=== PATIENT | male | born 1970 | race Caucasian/White ===

== ENCOUNTER 2019-09-21 14:45 | Outpatient (CLI) | payer OTHER, MEDICAID, SELFPAY ==
--- NOTE | ~2019-09-21 | XR_ITS ---
XR thoracic spine 3V 09/21/2019 15:11 Indication: Chest pain Procedure: 3 views of the thoracic spine Comparison: No prior studies for comparison. Findings: Vertebral body heights are maintained. No paraspinal soft tissue abnormality. Pedicles inta ct. Surrounding osseous structures within normal limits. Impression: 1: No significant abnormality of the thoracic spine. Reviewed, dictated and finalized at location A. Impression: 1: No significant abnormality of the thoracic spine.
== END 2019-09-21 14:46 | disposition home or self-care (01) ==
PROVIDERS: PCP Family Medicine; Visit Provider Physician Assistant
DX: M54.6 Pain in thoracic spine (principal); R07.9 Chest pain, unspecified
CPT/HCPCS: 72072

== ENCOUNTER → 2019-11-04 13:54 | Outpatient (CLI) | payer SELFPAY ==
--- NOTE | ~2019-11-04 | US_ITS ---
EXAMINATION: US soft tissue head and neck EXAM DATE: 11/04/2019 14:24 INDICATION: Left neck mass. TECHNIQUE: Multiple grayscale and Doppler images of the left neck symptomatic region were obtained (nica mae a technologist who performed the scan) and subsequently reviewed. There is no prior study for roni blair. FINDINGS: Scanning in the area of clinical concern demonstrates lymphadenopathy, with largest lymph node measur ing 3.6 x 2.3 x 3.1 cm, next largest measuring 1.8 x 1.1 x 1.8 cm. Only small fatty hilum is present. Appearance is suspicious for lymphoma or other malignancy. Recommend CT neck with contrast, ENT cons ult. IMPRESSION: 1. Left neck lymphadenopathy; recommend CT scan and ENT consult. I discussed this finding, recommendation with Jazmin in the office of Eric Rao DO at 11/03 14:40 CDT . Reviewed, dictated and finalized at location B. IMPRESSION: 1. Left neck lymphadenopathy; recommend CT scan and ENT consult. I discussed this finding, recommendation with Jazmin in the office of Eric acosta DO at 11/04/2019 14:40 CDT .
== END ==
PROVIDERS: PCP Student in an Organized Health Care Education/Training Program; Visit Provider Student in an Organized Health Care Education/Training Program
DX: R22.1 Localized swelling, mass and lump, neck (principal); R59.0 Localized enlarged lymph nodes
CPT/HCPCS: 76536

== ENCOUNTER 2019-12-25 20:21 | Emergency (ER) | payer BC, SELFPAY ==
--- NOTE | ~2019-12-25 | CT_ITS ---
EXAMINATION: CT abdomen pelvis w con DATE: 12/25/2019 21:19 INDICATION: Right flank pain TECHNIQUE: Computed tomography (CT) of the abdomen and pelvis was performed with 100 cc Omnipaque 350 intravenous contrast. The dose-length product was 244.94 mGy-cm. Automated exposure control and iter ative reconstruction technique were employed. COMPARISON: CT dated 03/29/2016. FINDINGS: Lung bases are unremarkable. No significant pleural or pericardial effusion. Heart size is normal. There is a large soft tissue mass centered in the upper abdomen retroperitoneum encasing the left adr enal gland extending across the midline posterior to the IVC and abutting the medial aspect of the ri ght is fashion on the right. This surrounds the aorta and renal vessels. Fatty infiltration of the liver. The spleen, pancreas, right adrenal gland and right kidney are unrem arkable. The previously described mass extends into the left renal hilum. Gallbladder is present. Non obstructive bowel gas pattern. Enlarged prostate gland. Trace fluid extending along the paracolic gut ters into the pelvis. Mild lumbar spondylosis. IMPRESSION: 1. Large 13.2 x 11.8 x 9 cm left retroperitoneal mass centered in the upper abdomen encasing the left adrenal gland, aorta, IVC and renal vessels, most likely lymphoma. Metastatic disease and spindle ce ll tumors are not excluded. Reviewed, dictated and finalized at location A. IMPRESSION: 1. Large 13.2 x 11.8 x 9 cm left retroperitoneal mass centered in the upper abd omen encasing the left adrenal gland, aorta, IVC and renal vessels, most likely lymphoma. Metastatic disease and spindle cell tumors are not excluded.
[2019-12-25 20:25] VITALS: BP 124/85; PULSE 89; RESP 18; TEMP 36.2; O2SAT 100
--- NOTE | 2019-12-25 20:33 | ED.NAVMDI ---
HPI - Nausea/Vomiting/Diarrhea General Chief complaint: Nausea/Vomiting/Diarrhea Stated complaint: abdominal pain, constipation, vomiting. Time Seen by Provider: 12/25/19 20:30 History of Present Illness HPI Narrative: 49 yo male w/ h/o testicular cancer on chemo therapy presents to the ED for nausea, vomiting, and abdominal pain. He has had nausea and vomiting for the past 5 days. Worse today and associated with right sided abdominal pain described as pressure. He also reports only being able to pass only small soft bowel movmeents, although he attributed this to decreased intake. Related Data Home Medications Medication Instructions Recorded Confirmed aspirin 325 mg tablet 325 mg PO DAILY 05/12/19 09/08/19 multivitamin 1 tablet PO DAILY 05/12/19 09/08/19 Allergies Allergy/AdvReac Type Severity Reaction Status Date / Time No Known Allergies Allergy Verified 09/08/19 13:30 Review of Systems Review of Systems: All systems reviewed & are unremarkable except as noted in HPI and below Constitutional: Constitutional: Denies fever(s) and Reports weakness ENT: Reports dizziness Cardiovascular: Cardiovascular: Denies chest pain Respiratory: Respiratory: Denies dyspnea Gastrointestinal: Gastrointestinal: Reports abdominal pain, Reports nausea and Reports vomiting Genitourinary: Genitourinary: Reports oliguria Neurologic: Reports weakness PMFSH Past Medical History Medical History H/O testicular cancer Family History Family History Mother Family history of hypercholesterolemia Family history of malignant neoplasm of urinary bladder Father Malignant neoplasm of prostate Family history of malignant neoplasm of testis Social History Social History Smoking status: Never smoker Alcohol intake: current Substance use: never Substance use type: does not use Gender identity (if verbalized by the patient): Male Exam Const: General: no acute distress, alert and ill appearing Orientation/consciousness: patient oriented x3 HENMT: Head: normal to inspection Resp: Effort & Inspection: normal respiratory effort Auscultation: clear to auscultation bilaterally, no rales, no rhonchi and no wheezes Cardio: Jugular venous distension: no JVD Rate: regular rate Rhythm: regular rhythm Heart sounds: no murmurs GI: Inspection: non-distended GI Palp: Yes Soft to palpation, Yes Tenderness to palpation present (GI) (Right lateral), Yes Guarding due to palpation present (GI) and No Rebound tenderness present Skin: General skin exam: normal color Neuro: General: patient oriented x3, moves all extremities and no focal motor deficits Speech: normal speech Extrem: General: normal to inspection and no edema Psych: Appearance: well kempt Affect: normal affect Course Vital Signs Vital signs: Vital Signs Temperature 36.2 C L 12/25/19 20:25 Pulse Rate 89 12/25/19 20:25 Respiratory Rate 18 12/25/19 20:25 Blood Pressure 124/85 12/25/19 20:25 Pulse Oximetry 100 12/25/19 20:25 Temperature 36.8 C 12/25/19 23:12 Pulse Rate 80 12/25/19 23:12 Respiratory Rate 16 12/25/19 23:12 Blood Pressure 116/70 12/25/19 23:12 Pulse Oximetry 100 12/25/19 23:12 MDM - Nausea/Vomiting/Diarrhea MDM Narrative Medical decision making narrative: Feeling better and tolerating PO after treatment. Feels ready to be discharged. Medical Records Attestation: I reviewed the patient's medical records. Lab Data Attestation: I reviewed the patient's lab results. Result diagrams: 12/25/19 20:35 12/25/19 20:35 Labs: Lab Results 12/25/19 12/25/19 12/25/19 Range/Units 20:35 20:35 21:45 WBC 7.4 (4.5-10.0) K/mm3 RBC 5.50 (4.6-6.20) M/mm3 Hgb 16.7 (14.0-18.0) g/dL Hct 47.1 (42.0-52.0)
[2019-12-25 20:41] LABS: Basophils Percent Auto 0.3 % (0.2-1.2); Eosinophils Percent Auto 0.5 % (0-4.4); Hematocrit 47.1 % (42.0-52.0); Hemoglobin 16.7 g/dL (14.0-18.0); Immature Granulocyte Absolute 0.03 K/mm3 (0.00-0.031); Immature Granulocyte Percent A 0.4 % (0-0.5); Lymphocytes Absolute Auto 0.79 K/mm3 (0.9-3.2); Lymphocytes Percent Auto 10.6 % (18.3-44.2); Mean Corpuscular HGB Conc 35.5 g/dl (32-36); Mean Corpuscular Hemoglobin 30.4 pg (26-34); Mean Corpuscular Volume 85.6 fl (80-100); Mean Platelet Volume 9.5 fl (7.4-10.4); Monocytes Absolute Auto 0.1 K/mm3 (0.1-0.6); Monocytes Percent Auto 0.8 % (2.6-8.5); Neutrophils Absolute Auto 6.5 K/mm3 (1.3-6.7); Neutrophils Percent Auto 87.4 % (45.5-73.1); Platelet Count Result 404 k/mm3 (150-375); Red Cell Distribution Width 11.5 % (11.5-14.5); White Blood Count 7.4 K/mm3 (4.5-10.0)
[2019-12-25 20:50] VITALS: BP 110/93; BP 117/85; BP 117/90; PULSE 104; PULSE 87
[2019-12-25 20:53] LABS: Alanine Aminotransferase 35 U/L (4-50); Albumin Level 4.2 g/dL (3.5-5.1); Alkaline Phosphatase 98 U/L (38-126); Anion Gap 8 mmol/L (8-16); Aspartate Amino Transferase 25 U/L (17-59); Bilirubin,Total 1.6 mg/dL (0.2-1.3); Blood Urea Nitrogen 28 mg/dL (9-20); Calcium 9.2 mg/dL (8.4-10.2); Carbon Dioxide 28 mmol/L (22-30); Chloride 97 mmol/L (98-107); Estimated CRCL calculation 56 ml/min; Estimated Glomerular Filt Rate 59; Glucose 99 mg/dL (75-110); Lipase 605 U/L (23-300); Potassium 4.2 mmol/L (3.4-5.0); Sodium 133 mmol/L (137-145)
[2019-12-25] MEDS: SODIUM CHLORIDE 0.9% IV 1,000 ML 999 ML IV CONT (21:49)
[2019-12-25] MEDS: ONDANSETRON INJ 4 MG/2 ML VIAL IV PUSH (21:49)
[2019-12-25 21:57] LABS: Add Urine Microscopic? YES; Appearance Urine Clear (Clear); Bilirubin Urine Negative (Negative); Blood Urine 2+ (Negative); Color Urine Yellow (Yellow); Glucose Urine UA Negative (Negative); Ketones Urine Trace mg/dL (Negative); Leukocyte Esterase Ur Negative LEU/UL (Negative); Nitrate Urine Negative (Negative); Protein Urine Negative (Negative); RBC Urine 0-2 /hpf (0-2); Squamous Epithelial Cell Urine Rare /hpf (Few); Urobilinogen Urine Negative mg/dL (<2.0); WBC Urine 0-3 /hpf
[2019-12-25 21:59] LABS: Specific Grav Ur > 1.060 (1.001-1.035)
[2019-12-25 23:12] VITALS: BP 116/70; PULSE 80; RESP 16; TEMP 36.8; O2SAT 100
== END 2019-12-25 23:13 | disposition home or self-care (01) ==
PROVIDERS: Emergency Provider Emergency Medicine; PCP Student in an Organized Health Care Education/Training Program
DX: R11.2 Nausea with vomiting, unspecified (principal); R10.9 Unspecified abdominal pain; C62.90 Malignant neoplasm of unspecified testis, unspecified whether descended or undescended; Z79.82 Long term (current) use of aspirin; Z79.899 Other long term (current) drug therapy; R19.02 Left upper quadrant abdominal swelling, mass and lump
CPT/HCPCS: 36415; 74177; 80053; 81001; 83690; 85025; 96361; 96374; 99284; J2405; J7030; Q9967

== ENCOUNTER 2020-03-20 08:56 | Outpatient (CLI) | payer BC, SELFPAY ==
--- NOTE | ~2020-03-20 | CT_ITS ---
EXAMINATION: CT chest abdomen pelvis w con EXAM DATE: 03/20/2020 09:38 INDICATION: Metastatic testicular cancer. TECHNIQUE: Spiral CT of the chest, abdomen and pelvis was performed without contrast. Axial, adam l and sagittal images were reviewed. Coronal maximum intensity pixel images of chest reviewed. The dose-length product (DLP) for this examination was 519.58 mGy-cm. The exposure was tailored accordin g to patient size (auto mA exposure control), and iterative reconstruction (ASIR) was used as additio nal dose reduction technique. Comparison is made to prior examination from 12/25/2019. FINDINGS: CHEST: The lungs are clear. There are no pleural or pericardial effusions. Tracheobronchial tree is patent. There is no mediastinal, hilar or axillary lymphadenopathy. There is no pneumothorax. Heart normal in size. There is mild to moderate coronary arterial calcification, arterial sclero sis. ABDOMEN PELVIS: There is ill-defined soft tissue density at the root of the mesentery, and surroundin g the left renal artery and veins, with significant interval decrease in bulk compared to previous ex am (today region medial to the left kidney measures 3.3 x 3.7 cm versus about 8.5 x 7.8 cm in December . This is consistent with response to chemotherapy treatment. There is evidence of left-sided orchiec bonita. The liver, spleen, adrenal glands and pancreas are unremarkable. Gallbladder is unremarkable. No bi liary obstruction. Portal and splenic veins are patent. Kidneys enhance symmetrically. There is no hydronephrosis. There is mild prostatomegaly. The bladder is undistended at time of imaging. The appendix is normal. The stomach and small bowel are unremarkable. There is expected amount of c olonic stool. No free intraperitoneal gas. There are no osteoblastic or osteolytic lesions identi fied. IMPRESSION: Significant interval decrease in size of retroperitoneal, left renal perihilar metastatic disease. Reviewed, dictated and finalized at location A. RUCTIONAL SUPPORT TECHNICIAN IMPRESSION: Significant interval decrease in size of retroperitoneal, left sophia l perihilar metastatic disease.
== END 2020-03-20 08:57 | disposition home or self-care (01) ==
PROVIDERS: PCP Student in an Organized Health Care Education/Training Program; Visit Provider Internal Medicine Medical Oncology
DX: C62.90 Malignant neoplasm of unspecified testis, unspecified whether descended or undescended (principal)
CPT/HCPCS: 71260; 74177; Q9967

== ENCOUNTER 2023-10-22 07:04 | Outpatient (CLI) | payer BC, SELFPAY ==
--- NOTE | ~2023-10-22 | MR_ITS ---
MRI of the cervical spine Clinical History: Radiculopathy Technique: Axial T2-weighted and gradient images, and sagittal T1-weighted, T2-weighted, and STIR bety ges were acquired. Findings: There is no fracture of the cervical spine. There is minimal grade 1 retrolisthesis of C5 o paulette C6. No suspicious bone marrow signal abnormality seen. At C2-C3, C3-C4, C4-C5, there is no disc bulge or herniation. No spinal canal stenosis, cord compress ion, or neural foraminal narrowing at these levels. At C5-C6, there is moderate degenerative disc narrowing with disc osteophyte complex, most prominent at the right foraminal region. No mahnaz spinal canal stenosis or cord compression. There is right ivan ral foraminal narrowing, and possible minimal left neural foraminal narrowing. At C6-C7, there is probable right foraminal disc bulge/protrusion. No spinal canal stenosis or cord c ompression. Left neural foramen preserved. There is right neural foraminal narrowing. Impression: Degenerative spondylosis at C5-C6 and C6-C7, as detailed above, resulting in right neural foraminal n arrowing at these levels. Minimal grade 1 retrolisthesis of C5 over C6. Reviewed, dictated and finalized at location . Impression: Degenerative spondylosis at C5-C6 and C6-C7, as detailed above, resulting in ri ght neural foraminal narrowing at these levels. Minimal grade 1 retrolisthesis of C5 over C6.
== END 2023-10-22 07:05 ==
PROVIDERS: PCP Student in an Organized Health Care Education/Training Program; Visit Provider Student in an Organized Health Care Education/Training Program
DX: M54.12 Radiculopathy, cervical region (principal); M43.02 Spondylolysis, cervical region
CPT/HCPCS: 72141

== ENCOUNTER 2024-02-22 22:46 | Emergency (ER) | payer BC, SELFPAY ==
--- NOTE | ~2024-02-22 | CT_ITS ---
CT ANGIOGRAM NECK AND HEAD History: Dizziness. Technique: Axial noncontrast imaging of brain was performed. Serial spiral axial images through the h ead and neck were then obtained during arterial phase IV injection of 100 cc of Omnipaque 350. 3-D po stprocessing and MIP images were then reconstructed on the remote workstation. Dose reduction techniq ue was used on this scan by utilizing automated exposure control and iterative reconstruction techniq ue. The dose-length product (DLP) was 1853.20 mGy-cm. CTA neck findings: Bilateral vertebral arteries are patent. The common carotid, internal carotid, and external carotid arteries are patent. No stenosis or large vessel occlusion. No aneurysm. The proximal right internal carotid artery demonstrates 0% stenosis re lative to the normal distal artery lumen diameter. The proximal left internal carotid artery demonstr ates 0% stenosis relative to the normal distal artery lumen diameter. CTA head findings: Distal vertebral arteries, basilar artery, and posterior cerebral arteries are pat ent. Distal internal carotid arteries, middle cerebral arteries, and anterior cerebral arteries are p atent. No large vessel occlusion or stenosis. No aneurysm. Axial noncontrast images of the brain is unremarkable. No acute infarct, intracranial hemorrhage, or mass lesion seen. No mass effect or midline shift. Contreras-white differentiation intact. Ventricles and subarachnoid spaces are unremarkable. Paranasal sinuses and mastoid air cells are clear. Calvarium in tact. Impression: No significant abnormality seen. Reviewed, dictated and finalized at [facility]. ER Impression: No significant abnormality seen.
[2024-02-22 22:50] VITALS: BP 154/86; PULSE 75; RESP 15; TEMP 36.6; O2SAT 100
--- NOTE | 2024-02-22 22:54 | ECG_ITS ---
Test Date: 2024-02-22 23:00:34 Measurements Intervals [place] Rate: 78 P: 61 CT: 137 QRS: 39 QRSD: 97 T: 60 QT: 372 QTc: 426 Interpretive Statements SINUS RHYTHM POSSIBLE LEFT ATRIAL ENLARGEMENT [-0.1mV P WAVE IN V1/V2] No previous ECG available for comparison Electronically Signed On 02-23-2024 12:50:01 BILINGUAL EXECUTIVE ASSISTANT by Jj Sullivan M.D.
[2024-02-22 23:16] LABS: Basophils Absolute Auto 0.1 K/mm3 (0.0-0.1); Basophils Percent Auto 0.6 % (0.2-1.2); Eosinophils Absolute Auto 0.2 K/mm3 (0-0.3); Eosinophils Percent Auto 2.1 % (0-4.4); Hematocrit 45.5 % (42.0-52.0); Hemoglobin 16.2 g/dL (14.0-18.0); Immature Granulocyte Absolute 0.03 K/mm3 (0.00-0.031); Immature Granulocyte Percent A 0.4 % (0-0.5); Lymphocytes Absolute Auto 1.17 K/mm3 (0.9-3.2); Lymphocytes Percent Auto 13.8 % (18.3-44.2); Mean Corpuscular HGB Conc 35.6 g/dl (32-36); Mean Corpuscular Hemoglobin 31.3 pg (26-34); Mean Corpuscular Volume 87.8 fl (80-100); Monocytes Absolute Auto 0.7 K/mm3 (0.1-0.6); Monocytes Percent Auto 8.7 % (2.6-8.5); Neutrophils Absolute Auto 6.3 K/mm3 (1.3-6.7); Neutrophils Percent Auto 74.4 % (45.5-73.1); Platelet Count Result 248 k/mm3 (150-375); Red Blood Count 5.18 M/mm3 (4.6-6.20); Red Cell Distribution Width 12.9 % (11.5-14.5); White Blood Count 8.5 K/mm3 (4.5-10.0)
[2024-02-22 23:27] LABS: Alanine Aminotransferase 77 U/L (6-50); Albumin Level 4.7 g/dL (3.5-5.1); Alkaline Phosphatase 63 U/L (38-126); Anion Gap 11 mmol/L (4-12); Aspartate Amino Transferase 42 U/L (17-59); Bilirubin,Total 0.3 mg/dL (0.2-1.3); Blood Urea Nitrogen 15 mg/dL (9-20); Calcium 9.4 mg/dL (8.4-10.2); Carbon Dioxide 25 mmol/L (22-30); Chloride 105 mmol/L (98-107); Estimated CRCL calculation 63 ml/min; Estimated Glomerular Filt Rate > 60; Glucose 124 mg/dL (65-110); Potassium 3.9 mmol/L (3.4-5.0); Sodium 141 mmol/L (137-145)
[2024-02-23] VITALS (9 sets, daily range): BP systolic 129–138; BP diastolic 90–100; PULSE 77–92; RESP 12–25; O2SAT 96–100
[2024-02-23] MEDS: ONDANSETRON INJ 4 MG/2 ML VIAL IV PUSH (01:05)
[2024-02-23] MEDS: SODIUM CHLORIDE 0.9% IV 2,000 ML 999 ML IV CONT (01:05)
--- NOTE | 2024-02-23 02:56 | ED_ITS ---
HPI - General Adult General Chief complaint: Nausea/Vomiting/Diarrhea Stated complaint: n/v x 3 weeks Time Seen by Provider: 02/23/24 00:40 History of Present Illness HPI narrative: This is a 53-year-old male presenting with nausea vomiting 3 weeks. Patient has been feeling sensations of vertigo. These are worse at night. They are triggered by head movements and cause significant anxiety, nausea and vomiting. He does not have any associated double vision, slurred speech, trouble swallowing or loss of coordination. Symptoms completely and result resolve in between episodes. Patient has had some difficulty hearing during this time. Patient also notes that he is under a significant amount of stress as his father's cancer Related Data Home Medications Medication Instructions Recorded Confirmed aspirin 325 mg tablet 325 mg PO DAILY 05/12/19 09/08/19 multivitamin 1 tablet PO DAILY 05/12/19 09/08/19 Allergies Allergy/AdvReac Type Severity Reaction Status Date / Time No Known Allergies Allergy Verified 02/23/24 00:17 [facility] Past Medical History Medical History H/O testicular cancer Family History Family History Mother Family history of hypercholesterolemia Family history of malignant neoplasm of urinary bladder Father Malignant neoplasm of prostate Family history of malignant neoplasm of testis Social History Social History Smoking status: Never smoker Alcohol intake: current Alcohol use details: social drinker Substance use: never Substance use type: does not use Living arrangements: alone Occupation/Education: occupation Gender identity (if verbalized by the patient): Male Exam Narrative: APPEARANCE: No apparent distress. Head: atraumatic. TMs normal bilaterally EYES: EOMI, no nystagmus NOSE: Atraumatic NECK: Trachea midline RESPIRATORY: No increased rate of breathing, clear to auscultation CARDIOVASCULAR: RRR, no peripheral edema ABDOMINAL: Non-distended MUSCULOSKELETAl: No obvious deformities NEURO: Alert. Cranial nerves 2-12 grossly intact. Sensation light touch, motor function cerebellar function intact for 4 extremities. Gait exam was normal. SKIN:: Warm, dry. Normal color PSYCHIATRIC: Normal affect Course Vital Signs Vital signs: Vital Signs Temperature 97.8 F 02/22/24 22:50 Pulse Rate 75 02/22/24 22:50 Respiratory Rate 15 02/22/24 22:50 Blood Pressure 154/86 H 02/22/24 22:50 Pulse Oximetry 100 02/22/24 22:50 Oxygen Delivery Room Air 02/22/24 22:50 Temperature 97.8 F 02/22/24 22:50 Pulse Rate 87 02/23/24 00:15 Respiratory Rate 14 02/23/24 00:15 Blood Pressure 138/100 H 02/23/24 00:15 Pulse Oximetry 99 02/23/24 00:15 Oxygen Delivery Room Air 02/22/24 22:50 Medical Decision Making MDM Narrative Medical decision making narrative: -Course: 53-year-old male presenting with intermittent triggerable vertigo, na usea/vomiting. Patient does not have any concerning signs of a central cause of vertigo. CTA unremarkable. Laboratory studies normal. Patient be treated with meclizine. He will be given prescription for Zofran to help with nausea. Patient instructed follow-up with his primary care physician for further management. -DDX includes but is not limited to: peripheral vertigo, central vertigo BPPV, acute vestibular neuritis -Independent interpretation of studies: labs imaging reviewed Independent EKG interpretation: Rhythm [sinus], Rate [78], Callahan -[normal], MD -[normal], QRS [narrow], QTC [n ormal], T waves -[negative for concerning inversions], ST Segments - [Negative for concerning elevations] Final interpretations: [Normal Sinus Rhythm] -Shared decision making / Disposition:discharged. -RX Zofran Vital Signs Vital Signs: Vital Signs Temperature 97.8 F 02/22/24 22:50 Pulse Rate 75 02/22/24 22:50 Respiratory Rate 15 02/22/24 22:50 Blood Pressure 154/86 H 02/22/24 22:50 Pulse Oximetry 100 02/22/24 22:50 Oxygen Delivery Room Air 02/22/24 22:50 Temperature 97.8 F 02/22/24 22:50 Pulse Rate 87 02/23/24 00:15 Respiratory Rate 14 02/23/24 00:15 Blood Pressure 138/100 H 02/23/24 00:15 Pulse Oximetry 99 02/23/24 00:15 Oxygen Delivery Room Air 02/22/24 22:50 Lab Data 02/22/24 23:04 02/22/24 23:04 Labs: Lab Results 02/22/24 02/23/24 Range/Units 23:04 02:20 WBC 8.5 (4.5-10.0) K/mm3 RBC 5.18 (4.6-6.20) M/mm3 Hgb 16.2 (14.0-18.0) g/dL Hct 45.5 (42.0-52.0) % MCV 87.8 (80-100) fl MCH 31.3 (26-34) pg MCHC 35.6 (32-36) g/dl RDW 12.9 (11.5-14.5) % Plt Count 248 (150-375) k/mm3 MPV 10.0 (7.4-10.4) fl Immature Gran % (Auto) 0.4 (0-0.5) % Neut % (Auto) 74.4 H (45.5-73.1) % Lymph % (Auto) 13.8 L (18.3-44.2) % [place]ike % (Auto) 8.7 H (2.6-8.5) % Eos % (Auto) 2.1 (0-4.4) % Baso % (Auto) 0.6 (0.2-1.2) % Lymph # (Auto) 1.17 (0.9-3.2) K/mm3 Pike # (Auto) 0.7 H (0.1-0.6) K/mm3 Eos # (Auto) 0.2 (0-0.3) K/mm3 Baso # (Auto) 0.1 (0.0-0.1) K/mm3 Abs Immat Gran (auto) 0.03 (0.00-0.031) K/mm3 Absolute Neuts (auto) 6.3 (1.3-6.7) K/mm3 Absolute Nucleated RBC 0.000 (0.0-0.012) K/mm3 Nucleated RBC % 0.0 (0.0-0.2) % Sodium 141 (137-145) mmol/L Potassium 3.9 (3.4-5.0) mmol/L Chloride 105 (98-107) mmol/L Carbon Dioxide 25 (22-30) mmol/L Anion Gap 11 (4-12) mmol/L BUN 15 D (9-20) mg/dL Creatinine 1.10 (0.7-1.3) mg/dL Estim Creat Clear Calc 63 ml/min Estimated GFR > 60 (59 - ) Glucose 124 H (65-110) mg/dL Calcium 9.4 (8.4-10.2) mg/dL Total Bilirubin 0.3 (0.2-1.3) mg/dL AST 42 (17-59) U/L ALT 77 H (6-50) U/L Alkaline Phosphatase 63 (38-126) U/L Total Protein 8.0 (6.3-8.2) g/dL Albumin 4.7 (3.5-5.1) g/dL Influenza A (RT-PCR) Pending Influenza B (RT-PCR) Pending RSV (RT-PCR) Pending SARS-CoV-2 RNA (RT-PCR) Pending Discharge Plan Discharge Clinical Impression: Vertigo Patient Disposition: Home, Self-Care Condition: Stable Instructions: Antibiotic Form, Benign Paroxysmal Positional Vertigo (DC) Additional Instructions: please continue taking meclizine for your vertigo. You can use Zofran for nausea vomiting. You can perform the Kelly maneuver at home to see if that improves her symptoms. Please follow-up with your primary care physician for further management. Return to ED if you develop double vision slurred speech loss of coordination or difficulty swallowing. Prescriptions: New meclizine 25 mg tablet 25 mg PO TID Qty: 30 0RF ondansetron 4 mg tablet,disintegrating 4 mg PO Q8H PRN (Reason: nausea and vomiting) Qty: 30 0RF No Action cyclobenzaprine 10 mg tablet 10 mg PO TID PRN (Reason: muscle spasm) Qty: 30 0RF aspirin 325 mg tablet 325 mg PO DAILY multivitamin Tablet 1 tablet PO DAILY hydrocodone-acetaminophen [[place]] 5-325 mg tablet 1 tablet PO Q6H PRN (Reason: pain) Qty: 5 0RF tramadol 50 mg tablet 50 mg PO Q8H PRN (Reason: pain) Qty: 15 0RF Follow-up/Referrals: Jalen,DO Eric [Primary Care Provider] -
[2024-02-23 03:04] LABS: Influenza A QL RT-PCR Negative (Negative); Influenza B QL RT-PCR Negative (Negative); RSV RNA, RT-PCR Negative (Negative); SARS-CoV-2 RNA PCR Negative (Negative)
== END 2024-02-23 03:19 | disposition home or self-care (01) ==
PROVIDERS: Emergency Provider Emergency Medicine; PCP Student in an Organized Health Care Education/Training Program
DX: R42 Dizziness and giddiness (principal); Z20.822 Contact with and (suspected) exposure to COVID-19; F17.210 Nicotine dependence, cigarettes, uncomplicated; Z85.47 Personal history of malignant neoplasm of testis
CPT/HCPCS: 36415; 70496; 70498; 80053; 85025; 87637; 93005; 96361; 96374; 99284; J2405; J7030; Q9967